=== PATIENT | female | born 1950 | race Asian ===

== ENCOUNTER 2017-01-04 23:12 | Emergency (ER) | payer MEDICARE, OTHER ==
--- NOTE | 2017-01-04 23:50 | ED Physician Documentation ---
PD HPI CHEST PAIN - Stated complaint Stated Complaint: CP/HBP - Chief complaint Chief Complaint: Cardiac - History obtained from History obtained from: Patient - History of Present Illness Timing - onset: Enter time (22:00) Timing - onset during: Rest Timing - details: Abrupt onset, Intermittant Quality: Pressure Radiation: No: Jaw, Neck, Back, Abdominal, Left upper extremity, Right upper extremity Improved by: Rest Worsened by: Exertion Associated symptoms: No: Shortness of air, Diaphoresis, Nausea, Vomiting, Feeling faint / dizzy, General Weakness, Palpitations Similar symptoms before: Has not had sx before Recently seen: Not recently seen - Additional information Additional information: c/o chest pain began 10PM at rest, given NTG x 1 and this relieved the chest pain. However, the pain recurred. She is also concerned regarding her high blood pressure (219/80 initially). Review of Systems Constitutional: reports: Reviewed and negative Cardiac: reports: Chest pain / pressure. denies: Palpitations, Pedal edema, Calf pain Respiratory: reports: Reviewed and negative GI: reports: Reviewed and negative Skin: reports: Reviewed and negative Musculoskeletal: reports: Reviewed and negative Neurologic: reports: Reviewed and negative PD PAST MEDICAL HISTORY - Past Medical History Past Medical History: Yes Cardiovascular: Hypertension, Coronary artery disease - Past Surgical History Past Surgical History: Yes Cardiovascular: Coronary stent - Present Medications Home Medications: Ambulatory Orders Medication Instructions Recorded Confirmed Adalimumab [Humira Pen] 0.8 ml IM 01/05/17 Amlodipine Besylate [Norvasc] 10 mg PO DAILY 01/05/17 01/05/17 Aspirin 81 mg PO DAILY 01/05/17 01/05/17 Azilsartan Medoxomil [Edarbi] 1.5 tab PO DAILY 01/05/17 01/05/17 Calcium Carbonate/Vitamin D3 1 tab PO BID 01/05/17 01/05/17 [Calcium 600-Vit D3 400 Tablet] Carbamazepine 200 mg PO BID 01/05/17 01/05/17 Cetirizine [ZyrTEC] 1 tab PO DAILY 01/05/17 01/05/17 Cholecalciferol (Vitamin D3) 1 cap PO DAILY 01/05/17 01/05/17 [Vitamin D3] Cyanocobalamin (Vitamin B-12) 1 tab PO DAILY 01/05/17 01/05/17 [Vitamin B-12] Doxazosin [Cardura] 8 mg PO DAILY 01/05/17 01/05/17 Epoetin [Procrit] 1 ml IM 01/05/17 Esomeprazole Magnesium [Nexium] 40 mg PO DAILY 01/05/17 01/05/17 Fenofibrate 1 tab PO DAILY 01/05/17 01/05/17 Fluticasone [Flonase] 2 spray IH DAILY 01/05/17 01/05/17 Glipizide [Glipizide Xl] 1 tab PO DAILY 01/05/17 01/05/17 Isosorbide Mononitrate [Isosorbide 1 tab PO DAILY 01/05/17 01/05/17 Mononitrate ER] Leflunomide [Arava] 1 tab PO 01/05/17 Montelukast [Singulair] 1 tab PO DAILY 01/05/17 01/05/17 Multivitamin [Multivitamins] 1 cap PO DAILY 01/05/17 01/05/17 Rosuvastatin Calcium [Crestor] 1 tab PO DAILY 01/05/17 01/05/17 Spironolactone 12.5 mg PO DAILY 01/05/17 01/05/17 cloNIDine [Catapres] 0.2 mg PO ONCE PRN #6 tablet 01/05/17 - Allergies Allergies/Adverse Reactions: Allergies Allergy/AdvReac Type Severity Reaction Status Date / Time promethazine HCl * Allergy Unknown Verified 01/05/17 00:23 [From Phenergan] acetaminophen [From Vicodin] AdvReac Unknown Verified 01/05/17 00:23 carbamazepine [From Epitol] AdvReac Unknown Verified 01/05/17 00:23 famotidine [From Pepcid] AdvReac Unknown Verified 01/05/17 00:23 hydrocodone bitartrate * AdvReac Unknown Verified 01/05/17 00:23 [From Vicodin] lisinopril [From Prinivil] AdvReac Unknown Verified 01/05/17 00:23 morphine AdvReac Rash Verified 01/05/17 00:23 propoxyphene HCl * AdvReac Unknown Verified 01/05/17 00:23 [From [place]von] - Living Situation Living Arrangement: reports: At home - Social History Does the pt smoke?: No PD ED PE NORMAL - Vitals Vital signs reviewed: Yes - General General: Alert and oriented X 3, No acute distress, Well developed/nourished - HEENT HEENT: Moist mucous membranes - Neck Neck: Supple, no meningeal sign - Cardiac Cardiac: RRR, No murmur - Respiratory Respiratory: No respiratory distress, Clear bilaterally - Abdomen Abdomen: Soft, Non tender - Derm Derm: Normal color, Warm and dry - Extremities Extremities: No edema Results - Vitals Vitals: Vital Signs - 24 hr 01/04/17 01/05/17 01/05/17 23:20 00:20 00:25 Temperature 36.7 C Heart Rate 60 60 65 Respiratory 17 14 18 Rate Blood Pressure 194/74 H 198/93 H 196/90 H O2 Saturation 98 100 99 01/05/17 01/05/17 01/05/17 00:35 01:08 01:27 Temperature Heart Rate 60 66 60 Respiratory 14 16 14 Rate Blood Pressure 207/78 H 188/65 H 197/73 H O2 Saturation 95 97 99 01/05/17 01/05/17 01/05/17 01:45 02:04 02:25 Temperature Heart Rate 71 60 60 Respiratory 16 16 15 Rate Blood Pressure 95/59 L 165/67 H 147/61 H O2 Saturation 99 96 100 01/05/17 01/05/17 01/05/17 02:40 02:51 03:47 Temperature Heart Rate 60 60 Respiratory 16 60 H 16 Rate Blood Pressure 140/63 H 145/73 H 145/60 H O2 Saturation 100 100 97 Oxygen O2 Source Room air - EKG (time done) No standard instances Rate: Rate (enter#) (60) Rhythm: NSR, Paced [place]: Normal Intervals: Normal [place] QRS: Normal Ischemia: Normal ST segments - Labs Labs: Laboratory Tests 01/05/17 01/05/17 01/05/17 00:15 00:15 00:15 WBC 5.9 RBC 3.48 L Hgb 10.2 L Hct 30.8 L MCV 88.4 MCH 29.3 MCHC 33.1 RDW 13.2 Plt Count 140 MPV 7.5 L Neut # 1.8 Lymph # 3.1 [place] # 0.5 Eos # 0.4 Baso # 0.1 Absolute Nucleated RBC 0.00 Nucleated RBCs 0.0 D-Dimer Sodium 139 Potassium 3.7 Chloride 105 Carbon Dioxide 26 Anion Gap 8.0 BUN 46 H Creatinine 2.6 H Estimated GFR (MDRD) 18 L Glucose 127 H Calcium 9.8 Total Bilirubin 0.4 AST 35 ALT 30 Alkaline Phosphatase 41 L Troponin I 0.23 Total Protein 7.7 Albumin 3.8 Globulin 3.9 Albumin/Globulin Ratio 1.0 Lipase 44 01/05/17 01/05/17 00:15 02:41 WBC RBC Hgb Hct MCV MCH MCHC RDW Plt Count MPV Neut # Lymph # [place] # Eos # Baso # Absolute Nucleated RBC Nucleated RBCs D-Dimer 222.4 Sodium Potassium Chloride Carbon Dioxide Anion Gap BUN Creatinine Estimated GFR (MDRD) Glucose Calcium Total Bilirubin AST ALT Alkaline Phosphatase Troponin I 0.26 Total Protein Albumin Globulin Albumin/Globulin Ratio Lipase - Rads (name of study) chest xray Radiology: Prelim report reviewed, See rad report PD MEDICAL DECISION MAKING - ED course Complexity details: reviewed results, re-evaluated patient, considered differential, d/w patient, d/w family Departure - Departure Disposition: Home, Self Care Clinical Impression: Chest pain Qualifiers: Chest pain type: unspecified Qualified Code(s): R07.9 - Chest pain, unspecified Condition: Good Instructions: ED Chest Pain Atypical Unkn Cause, ED HTN Established Follow-Up: Shan Smart MD [Primary Care Provider] - Prescriptions: cloNIDine [Catapres] 0.2 mg PO ONCE PRN #6 tablet PRN Reason: Hypertensive Emergency Comments: Use the blood pressure medication (clonidine/Catapres) as follows: take one tablet by mouth as needed for systolic blood pressure (upper number) higher than 200 on three readings in a row. Discharge Date/Time: 01/05/17 03:48
[2017-01-05] MEDS ORDERED: cloNIDine 0.1 MG TABLET PO STA ×2 (00:12→01:35)
[2017-01-05] MEDS ORDERED: cloNIDine 0.1 MG TABLET ONE ×2 (00:18→01:37)
[2017-01-05 00:23] LABS: BASOPHILS # (AUTO) 0.1 10^3/uL (0.0-0.1); BASOPHILS % (AUTO) 1.5 %; EOSINOPHILS # (AUTO) 0.4 10^3/uL (0.0-0.7); EOSINOPHILS % (AUTO) 7.2 %; HCT - HEMATOCRIT 30.8 % (37.0-47.0); HGB - HEMOGLOBIN 10.2 g/dL (12.0-16.0); LYMPHOCYTES # (AUTO) 3.1 10^3/uL (1.5-3.5); LYMPHOCYTES % (AUTO) 52.1 %; MEAN CORPUSCULAR HEMOGLOBIN 29.3 pg (27.0-31.0); MEAN CORPUSCULAR HGB CONC 33.1 g/dL (32.0-36.0); MEAN CORPUSCULAR VOLUME 88.4 fL (81.0-99.0); MEAN PLATELET VOLUME 7.5 fL (7.9-10.8); MONOCYTES # (AUTO) 0.5 10^3/uL (0.0-1.0); MONOCYTES % (AUTO) 9.3 %; NEUTROPHILS # (AUTO) 1.8 10^3/uL (1.5-6.6); NEUTROPHILS % (AUTO) 29.9 %; RED BLOOD COUNT 3.48 10^6/uL (4.20-5.40); RED CELL DISTRIBUTION WIDTH 13.2 % (12.0-15.0); UNCORRECTED WHITE BLOOD COUNT 5.9 x10^3/uL; WHITE BLOOD COUNT 5.9 x10^3/uL (4.8-10.8)
[2017-01-05 00:37] LABS: BILIRUBIN,TOTAL 0.4 mg/dL (0.2-1.0); CALCIUM 9.8 mg/dL (8.5-10.3); CREATININE 2.6 mg/dL (0.4-1.0); POTASSIUM 3.7 mmol/L (3.5-5.0); TOTAL PROTEIN 7.7 g/dL (6.7-8.2)
--- NOTE | 2017-01-05 01:38 | XRAY Preliminary Report ---
Exam: XR Chest 2 View PA/LAT IMPRESSION: 1. Several small nodular left lung base airspace disease. This could be related to infection or aspir ation. 2. Incidentally noted small 3.4 cm aneurysm of the abdominal aorta. [facility] SITE ID: [id number]
--- NOTE | 2017-01-05 01:41 | XRAY Report ---
EXAM: CHEST RADIOGRAPHY EXAM DATE: 01/05/2017 01:12 AM. CLINICAL HISTORY: Chest and back pain since 10 PM. COMPARISON: None. TECHNIQUE: 2 views. FINDINGS: Lungs/Pleura: Several small nodular left lung base airspace disease. No pleural effusion. No pneumoth orax. Normal volumes. Mediastinum: Heart and mediastinal contours are unremarkable. Other: There is a right subclavian pacemaker device with the tips at the right atrium and right ventr icle apex. Possible 3.4 cm calcified abdominal aortic aneurysm. IMPRESSION: 1. Several small nodular left lung base airspace disease. This could be related to infection or aspir ation. 2. Incidentally noted small 3.4 cm aneurysm of the abdominal aorta. [facility] Referring Provider Line: [phone] SITE ID: [id number]
[2017-01-05 03:48] VITALS: BP 145/60
== END 2017-01-05 03:48 | disposition home or self-care (01) ==
LOC: ED 23:12
DX: R07.9 Chest pain, unspecified (principal); I10 Essential (primary) hypertension; I25.10 Atherosclerotic heart disease of native coronary artery without angina pectoris; Z95.5 Presence of coronary angioplasty implant and graft; Z79.82 Long term (current) use of aspirin
CPT/HCPCS: 36415; 71020; 80053; 83690; 84484; 85025; 85379; 93005; 99284; A9270

== ENCOUNTER 2017-06-22 08:56 | Outpatient (CLI) | payer MEDICARE, OTHER ==
--- NOTE | 2017-06-22 12:10 | Ultrasound Report ---
EXAM: AORTIC DOPPLER ULTRASOUND EXAM DATE: 06/22/2017 10:11 AM. CLINICAL HISTORY: Abdominal aortic aneurysm, without rupture. COMPARISON: Correlation with two-view chest x-ray 01/05/2017. TECHNIQUE: Real-time sonographic imaging of retroperitoneal vascular structures, including color-flow , Doppler flow and spectral analysis was performed by the senior systems analyst. Multiple account development representative static images were saved for review. FINDINGS: Aorta: Distal abdominal aortic aneurysm noted with dense calcified atherosclerotic plaque along poste rior aspect. Extensive calcified plaque in iliac arteries. Aorta: Proximal: Sagittal AP: 1.9 cm. Mid: Transverse: 1.8 x 1.9 cm. Distal: Transverse: 4.2 x 4.0 cm with plaque. Plaque visualized: Yes. Iliacs: Right Iliac: Transverse: 0.87 x 0.94 cm, occluded. Left Iliac: Transverse: 1.2 x 1.2 cm, near occluded. Doppler: Proximal Aorta PSV: 59 cm/sec. Mid Aorta PSV: 85 cm/sec. Distal Aorta PSV: 83 cm/sec. Proximal LCIA PSV: 160 cm/sec. Iliac Vessels: Right common iliac artery appeared to be occluded measuring 0.9 x 0.9 cm diameter. The left common iliac artery nearly occluded measuring 1.2 x 1.2 cm diameter. Other: [place] Hammerer reports patient was asymptomatic. IMPRESSION: 1. Distal abdominal aortic aneurysm measures up to 4.2 cm diameter. It is difficult to compare with p rior chest x-ray due to differences in modality. Prior chest x-ray performed 01/05/2017 reported 3.4 cm diameter abdominal aortic aneurysm. Potential increase in size during last 5 months. 2. 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 Left common iliac artery may be nearly occluded. [place] Hammerer reported patient was asymptomatic, suggesting chronic disease. 3. Recommend clinical correlation and further characterization with CT angiography. [facility] Referring Provider Line: [phone] SITE ID: [id number]
== END 2017-06-22 08:57 | disposition home or self-care (01) ==
LOC: DI 08:56
PROVIDERS: ATTEND Specialist
DX: I71.4 Abdominal aortic aneurysm, without rupture (principal); I74.5 Embolism and thrombosis of iliac artery
CPT/HCPCS: 76775

== ENCOUNTER 2018-08-25 11:19 | Outpatient (CLI) | payer MEDICARE, OTHER ==
--- NOTE | 2018-09-04 09:18 | Mammography Report ---
Reason: SCREENING MAMMO Procedure Date: 08/25/2018 Accession Number: [id number] / [id number] Procedure: MGN - Screening Mammo Dig Bilat CPT Code: FULL RESULT: EXAM: Screening Mammo Dig Bilat DATE: 08/25/2018 11:44 AM CLINICAL HISTORY: Screening encounter. No family history of breast cancer. TECHNIQUE: Bilateral CC and MLO views were obtained. COMPARISON: 10/03/2016 through 03/12/2014. FINDINGS: The breasts demonstrate scattered fibroglandular densities bilaterally. A pacemaker obscures part of the upper right breast on the MLO view, stable and typically benign appearance. Typically benign vascular calcifications are again seen bilaterally. No suspicious masses, clustered microcalcifications, or regions of architectural distortion are identified. IMPRESSION: Benign findings RECOMMENDATION: Routine annual screening unless otherwise clinically indicated. BIRADS CATEGORY 2: Benign findings STANDARD QUALIFYING STATEMENTS: 1. This examination was reviewed with the aid of Computer-Aided Detection (CAD). 2. A negative or benign imaging report should not delay biopsy if clinically suspicious findings are present. Consider surgical consultation if warrented. More than 5% of cancers are not identified by imaging. 3. Dense breasts may obscure an underlying neoplasm.
== END 2018-08-25 11:20 | disposition home or self-care (01) ==
LOC: DI.N 11:19
DX: Z12.31 Encounter for screening mammogram for malignant neoplasm of breast (principal)
CPT/HCPCS: 77067

== ENCOUNTER 2020-11-27 11:20 | Outpatient (CLI) | payer MEDICARE, OTHER ==
--- NOTE | 2020-11-27 17:58 | Ultrasound Report ---
PROCEDURE: Abdomen Complete INDICATIONS: IRON OVERLOAD TECHNIQUE: Real-time scanning was performed of the abdominal and retroperitoneal organs, with image documentatio n. COMPARISON: Aortic ultrasound dated 06/22/2017. FINDINGS: Liver: Liver is normal in size. It has a coarsened echo pattern. Gallbladder: There is a 1.5 cm mobile gallstone. There is no gallbladder wall thickening or pain on e xamination or fluid around the gallbladder. Biliary ducts: Intrahepatic bile ducts are non-dilated. The extra-axial duct is dilated, measuring 9 mm at the level of the common hepatic duct. Pancreas: Visualized portions of the pancreas are sonographically normal. Spleen: Spleen is normal in size and homogeneous in echotexture. Kidneys: Left kidney measures 9.6 cm. It is of increased echogenicity consistent with chronic medical renal disease. It contains a 9 x 4 x 5 mm stone. No hydronephrosis. Right kidney is shrunken, measur ing 8.5 cm. It is of increased echogenicity consistent with chronic medical renal disease. There are multiple small cysts. Findings include a Bosniak 2F cyst with septation and mural nodule measuring 1. 7 x 1.5 x 2.0 cm. Aorta: There is an infrarenal abdominal aortic aneurysm, which measures 4.5 x 4.2 cm in diameter. Max imum diameter was previously 4.2 cm. Iliacs: Bilateral common iliac arteries are ectatic. The right common iliac artery measures 1.8 cm. T he left common iliac artery measures 2.0 cm. IVC: Intrahepatic inferior vena cava is patent. Miscellaneous: No free abdominal fluid. IMPRESSION: 1. Large mobile gallstone. 2. Liver is of coarsened echogenicity, a nonspecific finding. It can be seen with hepatocellular dise ase. 3. Dilated extrahepatic duct. 4. Slight interval growth of an infrarenal abdominal aortic aneurysm, now measuring 4.5 cm maximum di ameter. 5. Echogenic kidneys. The right kidney is small. The left kidney is borderline small. Lungs are consi stent with chronic medical renal disease. 6. 2.0 cm Bosniak 2F cyst. Reviewed by: Mars Huff MD on 11/27/2020 5:57 PM PDT Approved by: Mars Huff MD on 11/27/2020 5:57 PM PDT Station ID: [id number]
== END 2020-11-27 11:21 | disposition home or self-care (01) ==
LOC: DI 11:20
PROVIDERS: ATTEND Internal Medicine Hematology & Oncology
DX: K80.20 Calculus of gallbladder without cholecystitis without obstruction (principal); R93.2 Abnormal findings on diagnostic imaging of liver and biliary tract; K83.8 Other specified diseases of biliary tract; I71.4 Abdominal aortic aneurysm, without rupture; N28.1 Cyst of kidney, acquired

== ENCOUNTER 2021-06-28 14:46 | Outpatient (CLI) | payer MEDICARE, OTHER ==
--- NOTE | 2021-06-28 16:26 | XRAY Report ---
PROCEDURE: Chest 2 View X-Ray INDICATIONS: CHEST XR PRIOR TO DIALYSIS TECHNIQUE: 2 view(s) of the chest. COMPARISON: Chest x-ray dated 01/05/2017 FINDINGS: Surgical changes and devices: Right-sided pacer. Lungs and pleura: No pleural effusions or pneumothorax. There is mild diffuse basilar predominant re ticulonodular pulmonary opacity. Mediastinum: Mediastinal contours are normal. Heart size is enlarged. Bones and chest wall: No suspicious bony abnormalities. Soft tissues appear unremarkable. IMPRESSION: Mild edema versus atypical pneumonia. Reviewed by: Lorraine Floyd MD on 06/28/2021 4:25 PM PST Approved by: Lorraine Floyd MD on 06/28/2021 4:25 PM PST Station ID: [id number]
== END 2021-06-28 14:47 | disposition home or self-care (01) ==
LOC: DI.N 14:46
PROVIDERS: ATTEND Physician Assistant
DX: Z11.1 Encounter for screening for respiratory tuberculosis (principal); N18.6 End stage renal disease; Z99.2 Dependence on renal dialysis; R76.11 Nonspecific reaction to tuberculin skin test without active tuberculosis; R91.8 Other nonspecific abnormal finding of lung field

== ENCOUNTER 2021-09-28 13:49 | Outpatient (CLI) | payer MEDICARE, OTHER ==
--- NOTE | 2021-09-28 16:23 | XRAY Report ---
PROCEDURE: Chest 2 View X-Ray INDICATIONS: END STAGE RENAL DISEASE,NONSPECIFIC REACTION TO SK TECHNIQUE: 2 view(s) of the chest. COMPARISON: Chest x-ray 06/28/2021 FINDINGS: Surgical changes and devices: Pacemaker is unchanged. Lungs and pleura: No pleural effusions or pneumothorax. Lungs are clear. Mediastinum: Mediastinal contours are normal. Heart size is enlarged. Bones and chest wall: No suspicious bony abnormalities. Soft tissues appear unremarkable. IMPRESSION: No acute pulmonary process. Reviewed by: Lydia Dc MD on 09/28/2021 4:22 PM PDT Approved by: Lydia Dc MD on 09/28/2021 4:22 PM PDT Station ID: [id number]
== END 2021-09-28 13:50 | disposition home or self-care (01) ==
LOC: DI.N 13:49
PROVIDERS: ATTEND Physician Assistant
DX: R76.11 Nonspecific reaction to tuberculin skin test without active tuberculosis (principal); N18.6 End stage renal disease; Z99.2 Dependence on renal dialysis